=== PATIENT | male | born 1965 | race Two or more races ===

== ENCOUNTER 2023-07-13 23:04 | Emergency (ER) | payer SELFPAY ==
[~2023-07-13] VITALS: Ht 170.2 cm; Wt 70.0 kg
[2023-07-13 23:05] VITALS: BP 162/103; PULSE 99; RESP 16; TEMP 98.4; O2SAT 97
== END 2023-07-14 02:30 | disposition left against medical advice (07) ==
LOC: ER 23:04
DX: Z53.21 Procedure and treatment not carried out due to patient leaving prior to being seen by health care provider (principal)
CPT/HCPCS: 99281